=== PATIENT | female | born 1980 | race Two or more races ===

== ENCOUNTER 2017-07-14 17:59 | Emergency (ER) | payer MEDICAID ==
[~2017-07-14] VITALS: Ht 157.5 cm; Wt 71.7 kg
[~2017-07-14 17:59] MED LIST: IBUPROFEN600 MG ORAL
[2017-07-14 18:10] VITALS: BP 162/107
[2017-07-14] MEDS ORDERED: CEPHALEXIN500 MG ORAL (18:55)
[2017-07-14] MEDS ORDERED: IBUPROFEN600 MG ORAL (18:55)
--- NOTE | 2017-07-14 18:55 | Emergency Room Report ---
History of Present Illness General Chief Complaint: Laceration Source: Patient Present Illness HPI 37 yo female presents to ER complaining of laceration on hand. Patient states accident occurred a "few hours ago." Patient reports no active bleeding. Patient states she received tetanus update 1 year ago. Patient reports no loss of movement of hand. Patient denies acute bleeding in ER. Patient denies fever, chest pain, SOB. Allergies: Coded Allergies: No Known Allergies (Unverified , 03/09/16) Patient History Limited by: language barrier Past Medical History: see triage record Social History: Denies: smoking, alcohol use, drug use Last Menstrual Period: Apr, 2017 Now: No Reviewed Nursing Documentation: PMH: Agreed, PSxH: Agreed Nursing Documentation-PMH Past Medical History: No History, Except For Hx Hypertension: Yes Review of Systems All Other Systems: negative except mentioned in HPI Physical Exam Vital Signs Date Time Temp Pulse Resp B/P (MAP) Pulse Ox O2 Delivery O2 Flow Rate FiO2 07/14/17 18:10 98.4 16 162/107 97 Room Air 07/14/17 18:10 80 Sp02 EP Interpretation: reviewed, normal General Appearance: no apparent distress, alert, GCS 15, non-toxic Head: normocephalic, atraumatic Eyes: bilateral eye normal inspection, bilateral eye PERRL ENT: hearing grossly normal, normal pharynx, no angioedema, normal voice Neck: full range of motion, supple/symm/no masses Respiratory: chest non-tender, lungs clear, normal breath sounds, speaking full sentences Cardiovascular #1: regular rate, rhythm, no edema Cardiovascular #2: 2+ radial (R), 2+ radial (L) Musculoskeletal: back normal, digits/nails normal, gait/station normal, normal range of motion, non-tender Neurologic: alert, oriented x3, responsive, motor strength/tone normal, sensory intact, speech normal Psychiatric: mood/affect normal Skin: normal color, no rash, warm/dry, palpation normal, laceration - right hand web space, palmar side: 2cm laceration, superficial, linear, no active bleeding, no tendon exposure Procedures Laceration/Wound Repair Laceration/Wound Repair : Consent: Verbal Wound Location: upper extremity Wound's Depth, Shape: superficial Wound Explored: contaminated Irrigated w/ Saline (ccs): 10 Anesthesia: 1% Lidocaine Volume Anesthetic (ccs): 1 Wound Debrided: extensive Wound Repaired With: sutures Suture Size/Type: 5:0, proline Number of Sutures: 2 Sterile Dressing Applied?: Yes Sling Applied?: Yes Patient Tolerated: Well Complications: None Medical Decision Making PA Attestation Dr. Busby is my supervising Physician whom patient management has been discussed with. Diagnostic Impression: Primary Impression: Laceration ER Course Pt presents to ED c/o laceration on right wrist. DDX considered but are not limited to laceration, abrasion, contusion, cellulitis. Patient has full ROM, is NVI. No x-ray indicated at this time. VITAL SIGNS are WNL, patient is afebrile ED INTERVENTIONS: Wound was cleaned and irrigated using normal saline. Local block using Lidocaine 1%. Laceration repaired using 5.0 proline. 2 sutures were placed. Wound cleaned and covered using sterile dressing and Bacitracin. Thumb spica cast was applied to the right wrist following repair of the laceration. The affected wrist was checked afterwards by me showing good alignment and support with distal neurovascular functioning intact. Patient informed laceration is in area of high use, thumb spica used to help prevent movement and possible tear of sutures. Patient reports understanding and agreement to treatment plan. DISCHARGE: Rx provided for Keflex Rx provided for Ibuprofen At this time pt is stable for d/c to home. Will provide with patient care instructions and any necessary prescriptions. Patient to take medication as instructed. Care plan and follow-up instructions provided. Work note provided to patient. Patient questions asked and answered. Patient instructed to follow-up with primary care provider in 3 days for wound check on Tuesday and 7-10 days for removal of sutures. Patient instructed to followup with PCP to discuss further treatment plan and ability to go to work, ER precautions given. Patient instructed to return to ER immediately for any new or worsening of symptoms. Last Vital Signs Date Time Temp Pulse Resp B/P (MAP) Pulse Ox O2 Delivery O2 Flow Rate FiO2 07/14/17 18:10 98.4 80 16 162/107 97 Room Air Disposition: HOME, SELF-CARE Condition: Stable Scripts Ibuprofen* (MOTRIN*) 600 Mg Tablet 600 MG ORAL Q8H Y for For Pain, #30 TAB 0 Refills Prov: Zachary Edwards P.A. 07/14/17 Cephalexin* (KEFLEX*) 500 Mg Capsule 500 MG ORAL EVERY 12 HOURS for 7 Days, #14 CAP 0 Refills Prov: Zachary Edwards 07/14/17 Departure Forms: Return to Work Return to Work Date: Jul 17, 2017 Work Restrictions: No Heavy Lifting Patient Instructions: Laceration Care, Adult Additional Instructions: Followup with primary care provider in 3 days for wound check. Followup with primary care provider in 7-10 days for suture removal. Take medications as directed. Patient questions asked and answered. ER precautions given, patient instructed to return to ER immediately for any new or worsening of symptoms. Zachary Edwards Jul 14, 2017 18:55
[2017-07-14] MEDS ORDERED: Tetanus/Diptheria/Pertussis Vaccine 0.5ml Syr IM ONE (19:15)
[2017-07-14] MEDS ORDERED: Bacitracin Oint UD TOPIC ONE ×2 (20:00→20:06)
[2017-07-14 20:36] VITALS: BP 162/107
== END 2017-07-14 20:36 | disposition home or self-care (01) ==
LOC: EMR 19:28
DX: S61.411A Laceration without foreign body of right hand, initial encounter (principal); W25.XXXA Contact with sharp glass, initial encounter; Y92.009 Unspecified place in unspecified non-institutional (private) residence as the place of occurrence of the external cause; I10 Essential (primary) hypertension
CPT/HCPCS: 12001; 99283; Z7502